=== PATIENT | female | born 1950 | race Caucasian/White ===

== ENCOUNTER 2023-06-28 07:47 | Day surgery (SDC) | payer MEDICARE, OTHER ==
[2023-06-28] VITALS (15 sets, daily range): BP systolic 103–135; BP diastolic 52–81
[~2023-06-28] VITALS: Ht 165.1 cm; Wt 73.5 kg
[~2023-06-28 07:47] MED LIST: ASCO500 PO; Acetaminophen 500 MG Tab PO SCH; CeFAZolin Sodium 2,000 MG in NS 50 ML IV SCH; Chlorhexidine Mouth Care 15 ML UDC MT SCH; GABA300 PO; LEVSOD100 PO; LISI5 PO; LUTEIN10 MG PO; Lactated Ringer's 1,000 ML IV SCH; MULVITA PO; OxyCODONE HCL 10 MG TABCR PO SCH; Ropivacaine 0.5% HCl/Pf 67.75 MG,EPINEPHrine HCL 0.25 MG,Ketorolac Tromethamine 15 MG,C... INFIL SCH; Voltaren100 GM TOP
[2023-06-28] MEDS ORDERED: GABA300 PO (08:46)
[2023-06-28] MEDS ORDERED: FLUTICASONE PRO16 GM INH (08:48)
[2023-06-28] MEDS ORDERED: Midazolam HCl 1MG / ML 2ML Vial IV ONE (09:50)
[2023-06-28] MEDS ORDERED: ePHEDrine Sulfate 50 MG/ML 1ML Injection ONE (10:01)
[2023-06-28] MEDS ORDERED: FentaNYL Citrate 50 MCG/ML 2 ML Injection ONE ×2 (10:01→12:33)
[2023-06-28] MEDS ORDERED: propofoL 40 ML IV ONE (10:01)
[2023-06-28] MEDS ORDERED: Midazolam HCl 1MG / ML 2ML Vial ONE (10:06)
[2023-06-28] MEDS ORDERED: Lactated Ringer's 1,000 ML IV SCH (11:00)
[2023-06-28] MEDS ORDERED: Ondansetron HCl 2 MG / ML 2ML Vial IV PRN (11:00)
[2023-06-28] MEDS ORDERED: OxyCODONE HCL 5 MG TAB PO PRN ×2 (11:00→11:05)
[2023-06-28] MEDS ORDERED: Metoclopramide HCl 5MG / ML 2ML Vial IV PRN (11:00)
[2023-06-28] MEDS ORDERED: Magnesium Hydroxide Conc 10 ML UDC PO PRN (11:00)
[2023-06-28] MEDS ORDERED: Bisacodyl 10 MG Supp PR PRN (11:05)
[2023-06-28] MEDS ORDERED: Promethazine HCl 25 MG Tab PO PRN (11:05)
[2023-06-28] MEDS ORDERED: Prochlorperazine Edisylate 10 mg Vial IV PRN (11:05)
[2023-06-28] MEDS ORDERED: HYDROmorphone HCl/Pf 1MG SYR IV PRN (11:10)
[2023-06-28] MEDS ORDERED: Dexamethasone Sod Phos 10 MG/ML 1ML VIAL ONE (11:12)
[2023-06-28] MEDS ORDERED: Ondansetron HCl 2 MG / ML 2ML Vial ONE (11:12)
[2023-06-28] MEDS ORDERED: DiphenhydrAMINE HCL 25 MG Cap PO PRN (11:15)
[2023-06-28] MEDS ORDERED: FLU VACC QS2023-24(6MOS UP)/PF 60 MCG/0.5 ML SYRINGE IM SCH (11:15)
[2023-06-28] MEDS ORDERED: Ketorolac Tromethamine 15mg Vial IV SCH (12:00)
--- NOTE | 2023-06-28 13:45 | NUR ---
PT ARRIVED FROM PACU S/P RTHA AQUACEL CDI. NO DRAINAGE. PT REPORTED PAIN AT 3/10, EDUCATED ON ATTEMPTING TO EAT WATER AND CRACKERS THEN CAN TRANSITION TO ORAL MEDICATIONS. POLAR CHARIS IN PLACE SCD'S ON. PT PLACED ON 2L NASAL CANULA WHEN SHE FELL ASLEEP. SATS AT 94% AT THIS TIME. DENIES NUMBNESS BUT SLEEPY AT THIS TIME.
[2023-06-28] MEDS ORDERED: Gabapentin 300 MG Cap PO SCH ×2 (14:00→21:00)
[2023-06-28] MEDS ORDERED: Ascorbic Acid 500 MG Tab PO SCH (14:00)
[2023-06-28] MEDS ORDERED: Acetaminophen 500 MG Tab PO SCH (16:00)
--- NOTE | 2023-06-28 16:38 | NUR ---
SHIFT SUMMARY NO ACUTE CHANGES SINCE ARRIVAL TO UNIT PT WORKED WITH THERAPY, PT REPORTS SOME BASELINE DIZZINESS AND LIGHTHEADEDNESS FROM HYPOTHYROIDISM. ABLE TO TRANSFER TO CHAIR. PT REPORTS PAIN TOLERABLE AND NUMBNESS TO TOES AT BASELINE. TOLERATING DIET WELL. JOY DOSS.
[2023-06-28] MEDS ORDERED: CeFAZolin Sodium 2,000 MG in NS 50 ML IV SCH (18:30)
[2023-06-28] MEDS ORDERED: Docusate Sodium 100 MG Cap PO SCH (21:00)
[2023-06-28] MEDS ORDERED: Lisinopril 5 MG Tab PO SCH (21:00)
[2023-06-29 04:01] VITALS: BP 116/53
--- NOTE | 2023-06-29 04:53 | NUR ---
SHIFT SUMMARY POD1 R NICOLPepper HAMILTON IS C/D/I. SENSATION AND CIRCULATION REMAIN INTACT IN RLE. VSS. PT SLEPT WELL T/O THE NIGHT, REMARKS SHE HAS NOT SLEPT THIS WELL IN WEEKS. AMBULATED TO THE BATHROOM TO VOID W/O DIFFICULTY. LOW PO INTAKE D/T SLEEPING, NO N/V NOTED. MEDICATED FOR PAIN W/ SCHEDULED MEDICATIONS. NO ACUTE EVENTS NOTED. PLAN FOR PHYSICAL THERAPY AND D/C TODAY
[2023-06-29 05:34] LABS: BASOPHILS ABSOLUTE AUTO 0.01 K/mm3 (0.00-0.23); BASOPHILS PERCENT AUTO 0 % (0-2); EOSINOPHILS PERCENT AUTO 0 % (0-6); Hematocrit 33.5 % (33.0-51.0); Hemoglobin 11.4 g/dL (11.5-16.0); IMMATURE GRAN ABSOLUTE AUTO 0.06 K/mm3 (0.00-0.10); IMMATURE GRAN PERCENT AUTO 1 % (0-1); LYMPHOCYTES ABSOLUTE AUTO 1.02 K/mm3 (0.84-5.20); LYMPHOCYTES PERCENT AUTO 8 % (21-46); MONOCYTES ABSOLUTE AUTO 0.91 K/mm3 (0.16-1.47); MONOCYTES PERCENT AUTO 7 % (4-13); Mean Corpuscular HGB 29.2 pg (26.0-34.0); Mean Corpuscular Volume 86 fL (80-100); Mean Platelet Volume 9.6 fL (9.1-12.4); NEUTROPHILS ABSOLUTE AUTO 10.39 K/mm3 (1.96-9.15); NEUTROPHILS PERCENT AUTO 84 % (41-73); Platelet Count 417 K/mm3 (150-400); RDW Coefficient Variation 13.8 % (11.7-14.2); RDW Standard Deviation 42.6 fL (35.1-46.3); Red Blood Cell Count 3.91 M/mm3 (3.80-5.20); White Blood Cell Count 12.39 K/mm3 (4.00-11.30)
[2023-06-29] MEDS ORDERED: Levothyroxine Sodium 0.1 MG Tab PO SCH (06:00)
[2023-06-29 06:37] LABS: Bun/Creatinine Ratio 20.7 (12.0-20.0); Calcium, Blood 8.3 mg/dL (8.5-10.1); Creatinine, Blood 0.63 mg/dL (0.40-1.00); Potassium, Blood 4.3 mmol/L (3.5-5.5)
[2023-06-29 07:04] VITALS: BP 119/59
[2023-06-29] MEDS ORDERED: Multivitamins 1 Tab PO SCH (09:00)
[2023-06-29] MEDS ORDERED: Fluticasone 0.05% Nasal Spray SCH (09:00)
[2023-06-29] MEDS ORDERED: Aspirin 81 MG Chew PO SCH (09:00)
[2023-06-29] MEDS ORDERED: Misc. Tablet PO SCH (09:00)
[2023-06-29] MEDS ORDERED: Aspir 8181 MG PO (09:08)
[2023-06-29] MEDS ORDERED: Percocet 5-3251 EACH PO (09:08)
--- NOTE | 2023-06-29 10:47 | NUR ---
DISCHARGE SUMMARY PT A&O4, VSS/RA, LAINE PO, VOIDING, AMB FWW/GB SBA, PAIN MANAGED, IV DC'D. DC INS PROVIDED. PT REP UNDERSTANDING THOSE INSTRUCTIONS. LEFT FLOOR VIA WC WITH RESIDENT MEDICAL OFFICER TO GO HOME WITH ALEX, WITH ALL PERSONAL POSSESSIONS INCLUDING DC PACKET, POLAR CHARIS, AQUACEL DRESSINGS; ALEX STATES SCRIPTS READY FOR NEEDLE BAR MOLDER AT PHARMACY.
== END 2023-06-29 10:43 | disposition home or self-care (01) ==
LOC: ORSCMMR 07:47 → ORD 09:15 → ORSCMMR 09:15 → SURS 12:45 → ORSCMMR 06-29 10:43 → ORD 07-19 09:15
PROVIDERS: Orthopaedic Surgery
PROC: 0SR90J9 Replacement of Right Hip Joint with Synthetic Substitute, Cemented, Open Approach (ICD-10-PCS; principal; 2023-06-28 09:15)
DX: M16.11 Unilateral primary osteoarthritis, right hip (principal); I10 Essential (primary) hypertension; E03.9 Hypothyroidism, unspecified; Z79.899 Other long term (current) drug therapy
CPT/HCPCS: 36415; 72170; 80048; 85025; 97110; 97116; 97162; A9270; C1713; C1776; J0171; J0690; J0735; J1100; J1885; J2250; J2405; J2704; J2795; J3010; J7120